=== PATIENT | male | born 1970 | race Caucasian/White ===

== ENCOUNTER 2018-04-10 06:22 | Emergency (ER) | payer OTHER ==
[~2018-04-10] VITALS: Ht 190.5 cm; Wt 77.1 kg
--- NOTE | 2018-04-10 06:42 | NUR ---
PT BIB [facility], PT AMBULATED TO PT STATES "I'VE HAD A COLOSTOMY FOR A YEAR AND TODAY HAD A REGULAR BOWEL MOVEMENT" PER [facility] FIELD BS IS NOT NORMAL AND FSBS HI" PT AOX3 RR EVEN AND UNLABORED. NO SOB NOTED. NAD NOTED. NO NVD AT THIS TIME. PT GOWNED AND PLACED ON MONITOR. PT NOTED WITH COLOSTOMY BAG.
--- NOTE | 2018-04-10 06:47 | NUR ---
DR. BUTCHER AT BEDSIDE SPEAKING TO PT. PT REFUSED IV / LABS / MEDICATION RISK AND BENEFITS EXPLAINED X3. PT STRONGGLY REFUSED. PT STATES "IM NOT WORRIED ABOUT MY INSULIN, IM WORRIED ABOUT MY COLOSTOMY"
--- NOTE | 2018-04-10 07:14 | NUR ---
PT STATES HE SELF MEDICATED WITH HUMILIN 70/30; 46UNITS. RISK AND BENEFITS EXPLAINED X3. PT ADAMENT ABOUT TAKING OWN MEDICATION. DR. BUTCHER MADE AWARE
--- NOTE | 2018-04-10 07:17 | NUR ---
REPORT GIVEN TO RAHEEM AMEZCUA
--- NOTE | 2018-04-10 07:17 | NUR ---
RECEIVED REPORT FOR CIELO.
--- NOTE | 2018-04-10 07:24 | NUR ---
CIRCUIT DESIGN ENGINEER AT BEDSIDE.
[2018-04-10 08:42] VITALS: BP 146/74
--- NOTE | 2018-04-10 08:44 | NUR ---
Patient discharged to home in stable condition. Written and verbal after care instructions given. Patient verbalizes understanding of instruction.
== END 2018-04-10 08:43 | disposition home or self-care (01) ==
LOC: ER 06:27
DX: Z93.3 Colostomy status (principal); E11.9 Type 2 diabetes mellitus without complications
CPT/HCPCS: 74018; A4606; Z7610